=== PATIENT | female | born 1990 | race Caucasian/White ===

== ENCOUNTER 2024-01-25 12:38 | Emergency (ER) | payer OTHER, SELFPAY ==
[2024-01-25 12:44] VITALS: BP 125/80; PULSE 73; RESP 18; TEMP 36.6; O2SAT 95; BMI 44.9
--- NOTE | 2024-01-25 13:44 | ED_ITS ---
HPI - Female Genitourinary <Princess Cortes PA-C - Last Filed: 01/25/24 17:56> General Chief complaint: Urogenital-Female Stated complaint: possible bladder infection, pain Time Seen by Provider: 01/25/24 12:56 Source: patient Mode of arrival: Ambulatory History of Present Illness HPI Narrative: 33-year-old female here today for pelvic pain, pelvic pressure, and urinary symptoms for 2-3 days. She reports a long history of PCOS. She also reports she has been having increasingly painful menstrual periods and has been attempting to be evaluated for endometriosis for several years now. States that recently her last. She had a lot urgency to urinate and pressure with urination which resolved as soon as her period was over. LMP 2 weeks ago. States that in the last couple of days she has had the same sensation of a lot of pelvic/bladder pressure that makes her feel like she is urinate constantly and sometimes she does urinate and sometimes she does not. She has also had spotting when she wipes after urinating but no blood in her actual urine. She denies any burning sensation when she urinates. States that the pressure is constant and is not relieved by urinating. She denies constipation. She re ports that she has had many ovarian cysts in the past some which have ruptured. Her mother had a hysterectomy in her late 20s but patient is unsure why (she has not in contact with her mother). Patient was concerned that she has a UTI so she came in today. She is also frustrated that she has been unable to see a specialist to get an diagnosis of endometriosis or whatever else has been going on with her periods. She has not tried any contraceptives yet. Related Data Allergies Allergy/AdvReac Type Severity Reaction Status Date / Time clarithromycin Allergy mouth Verified 01/25/24 12:44 sloughed off Penicillins Allergy childhood, Verified 01/25/24 12:44 hallucinations hydrocodone AdvReac Diarrhea Verified 01/25/24 12:44 prednisone AdvReac Palpitation Verified 01/25/24 12:44 s Review of Systems <Princess Cortes PA-C - Last Filed: 01/25/24 17:56> Review of Systems ROS Unobtainable: All systems reviewed & are unremarkable except as noted in HPI and below Patient History <Princess Cotres PA-C - Last Filed: 01/25/24 17:56> Substance Use Type: does not use Exam <Princess Cortes PA-C - Last Filed: 01/25/24 17:56> Narrative Exam Narrative: GENERAL: Well-developed, well-nourished, appears stated age. In no acute distress. Obese. HEAD: Atraumatic. Normocephalic. EYES: Pupils equal round and reactive. Extraocular motions intact. No scleral icterus. No injection or drainage. ENT: Nose without bleeding, purulent drainage. Airway patent. NECK: Trachea midline. Non tender RESPIRATORY: Respiratory rate and effort normal ABD: Generalized tenderness throughout the lower and mid abdomen but no focal tenderness. Soft, no rebound or guarding. No obvious masses palpated. EXTREMITIES: No edema or joint tenderness. NEURO: AOx3. SKIN: No rash or erythema of visible areas Initial Vital Signs Initial Vital Signs: Vital Signs Temperature 98 F 01/25/24 12:44 Pulse Rate 73 01/25/24 12:44 Respiratory Rate 18 01/25/24 12:44 Blood Pressure 125/80 01/25/24 12:44 Pulse Oximetry 95 01/25/24 12:44 Oxygen Delivery Method Room Air 01/25/24 12:44 <Margaret Dill MD - Last Filed: 01/26/24 07:02> Initial Vital Signs Initial Vital Signs: Vital Signs Temperature 98 F 01/25/24 12:44 Pulse Rate 73 01/25/24 12:44 Respiratory Rate 18 01/25/24 12:44 Blood Pressure 125/80 01/25/24 12:44 Pulse Oximetry 95 01/25/24 12:44 Oxygen Delivery Method Room Air 01/25/24 12:44 Course <Princess Cortes PA-C - Last Filed: 01/25/24 17:56> Orders Ordered: Discontinued Medications Acetaminophen (Acetaminophen 325 Mg Tablet) 975 mg PO NOW ONE Stop: 01/25/24 14:31 Last Admin: 01/25/24 14:38 Dose: 975 mg Documented By: PREMA Ondansetron HCl (Ondansetron 4 Mg/2 Ml Inj) 4 mg IV NOW PRN PRN Reason: Nausea And Vomiting Ondansetron HCl (Ondansetron 4 Mg Odt) 4 mg SL NOW PRN PRN Reason: Nausea And Vomiting Vital Signs Vital signs: Vital Signs - 8 hr 03/23/24 12:44 Temperature 98 F Pulse Rate 73 Respiratory Rate 18 Blood Pressure 125/80 Pulse Oximetry 95 Oxygen Delivery Method Room Air <Margaret Dill MD - Last Filed: 01/26/24 07:02> Orders Ordered: Discontinued Medications Acetaminophen (Acetaminophen 325 Mg Tablet) 975 mg PO NOW ONE Stop: 01/25/24 14:31 Last Admin: 01/25/24 14:38 Dose: 975 mg Documented By: PREMA Ondansetron HCl (Ondansetron 4 Mg/2 Ml Inj) 4 mg IV NOW PRN PRN Reason: Nausea And Vomiting Ondansetron HCl (Ondansetron 4 Mg Odt) 4 mg SL NOW PRN PRN Reason: Nausea And Vomiting Vital Signs Vital signs: Vital Signs - 8 hr 01/25/24 12:44 Temperature 98 F Pulse Rate 73 Respiratory Rate 18 Blood Pressure 125/80 Pulse Oximetry 95 Oxygen Delivery Method Room Air [facility] - Female Genitourinary <Princess Cortes PA-C - Last Filed: 01/25/24 17:56> Lab Data Labs: Lab Results 01/25/24 Range/Units 13:37 Urine RBC 30-100/hpf H (0-5/HPF) Urine WBC >100/hpf H (0-5/HPF) Ur Squamous Epith Cells None seen (0-5/HPF) Urine Bacteria Few (2-10) H (None) Ur Culture Indicated? Specimen cultured Vol Urine Centrifuged 10ml (spun) Point of Care Testing Test Results Negative Urine Dip Bedside Urine Glucose Negative Bedside Urine Bilirubin - Negative Bedside Urine Ketone - Negative Urine Specific [place] 1.025 Bedside Urine Occult Blood - Negative Bedside Urine Protein +/- 15 Bedside Urine Urobilinogen 3+ 8mg Bedside Urine Nitrite - Negative Bedside Urine Leukocytes - Negative Esterase Imaging Data pelvic US: Radiologist's Impression: [address] [address] Ultrasound Report Signed Patient: Noemy Grace MR#: [id number] : 1990 Acct:[id number] Age/Sex: 33 / F Date of Service: 01/25/24 Loc: ED Accession Number: [id number] Procedure: US pelvic complete Ordering Provider: Princess Cortes P.A-C PROCEDURE: US PELVIC COMPLETE INDICATIONS: pelvic pain/pressure, abnl vag bleeding TECHNIQUE: Real-time scanning was performed of the pelvic organs, with image documentation. Additional endovaginal scanning was necessary due to incomplete visualization of the adnexal and endometrial structures by transabdominal scanning. COMPARISON: None. FINDINGS: Uterus: Uterus is anteverted and normal in size at 8.4 x 4 x 5 cm. The myometrium is homogeneous. The endometrium measures 10 mm combined thickness. Ovaries: The right ovary measures 3 x 3.4 x 2.7 cm, with a calculated ovarian volume of 14.7 cc. The left ovary measures 2.6 x 2.2 x 2.3 cm, with a calculated ovarian volume of 6.7 cc. Within the right adnexa there is a 2.1 simple cyst. There is additional 2.3 complex cyst with internal septations. Less than 12 follicles can be seen in each ovary. No adnexal masses are seen. Other: No pathologic free abdominal or pelvic fluid. IMPRESSION: Complex right ovarian cyst is likely involuting hemorrhagic cyst. Consider follow-up imaging in 12 weeks to ensure resolution. We strive to produce accurate, complete, and clear reports of imaging services. To assist us in improving patient care, this report was composed using standard report templates and voice recognition software. Therefore, it may contain abnormal punctuation, insertions and/or omissions. Occasional wrong-word or sound-alike substitutions may occur. Though we review the report and make efforts to correct it, we do r ecommend that the report be read carefully in proper context to recognize any text inaccuracies. Dictated by: Wisam Collins M.D. on 01/25/2024 at 14:46 Approved by: Wisam Collins M.D. on 01/25/2024 at 14:49 [facility] Narrative Medical decision making narrative: [] Multiple etiologies for patient's symptoms considered including, but not limited to: UTI, dysmenorrhea, PCOS, endometriosis, overactive bladder, interstitial cystitis Patient's initial urine dipstick showed no bacteria, urine then sent for microscopic urinalysis which showed RBCs and WBCs but only few bacteria. Urine sent for culture. Her symptoms and urine today are not completely consistent with a UTI so we will await culture results before treating. Pelvic ultrasound was also done today because patient reports a long history worsening painful periods, urinary symptoms during her menses, and currently some abnormal spotting occurring 2 weeks after her last menses. There was a complex 2-1/2 cm cyst, possibly hemorrhagic cyst, on her right ovary but otherwise no significant findings on the ultrasound. Patient's belly is soft and although she reports generalized tenderness she does not appear uncomfortable or have any guarding or rebound tenderness on the exam. Her vital signs are normal, nontoxic appearing , moving around easily. It is possible that patient has endometriosis or some other menses related diagnosis but she will need to see gynecology to be further evaluated for this. Referral placed as she has having a hard time getting referrals through primary care (they were stationed in [place] up until recently). Again her urine today does not confirm a UTI for certain so will await urine culture results and call patient with results. We discussed signs and symptoms of worsening condition and when to return to the ER. Patient's symptoms improved over duration of stay with above-stated therapies. Findings and discharge diagnosis discussed with patient/family followed by verbalization of understanding Return precautions discussed with patient/family whom verbalize understanding of diagnosis and plan <Margaret Dill MD - Last Filed: 01/26/24 07:02> Lab Data Labs: Lab Results 01/25/24 Range/Units 13:37 Urine RBC 30-100/hpf H (0-5/HPF) Urine WBC >100/hpf H (0-5/HPF) Ur Squamous Epith Cells None seen (0-5/HPF) Urine Bacteria Few (2-10) H (None) Ur Culture Indicated? Specimen cultured Vol Urine Centrifuged 10ml (spun) Point of Care Testing Test Results Negative Urine Dip Bedside Urine Glucose Negative Bedside Urine Bilirubin - Negative Bedside Urine Ketone - Negative Urine Specific [place] 1.025 Bedside Urine Occult Blood - Negative Bedside Urine Protein +/- 15 Bedside Urine Urobilinogen 3+ 8mg Bedside Urine Nitrite - Negative Bedside Urine Leukocytes - Negative Esterase Discharge Plan Departure Patient Disposition: Home Clinical Impression: Pelvic pain, Ovarian cyst Instructions: DI for Ovarian Cyst, DI for Pelvic Pain Activity Restrictions/Additional Instructions: Thank you for seeing us today. You were evaluated for pelvic pain and urinary symptoms but found to have no urinary tract infection at this time. However your urine did show red blood cells and white blood cells and a few bacteria so we are sending it for urine culture which will verify whether or not it is a urinary tract infection. We will call you with the results. Please take Tylenol and Motrin as needed for your pain and drink plenty of fluids. You also had a pelvic ultrasound that showed a complex right ovarian cyst. Due to your ongoing symptoms relating to your menstrual period and your urinary tract symptoms I have referred you to gynecology. Please call the attached phone numbers this week to schedule an appointment. If you have any new or worsening symptoms including sudden onset severe pain, fevers, vomiting, back pain, severe vaginal bleeding please return to the emergency department. Referrals: Randi Degroot MD [Physician] - 5-7 days (Chronic pelvic pain and urinary symptoms with menses; worsening. Irregular and painful menses. Known Dx of PCOS but would like w/u for endometriosis. ) Daxa Castellon MD [Non-Staff] - 5-7 days (Chronic pelvic pain and urinary symptoms with menses; worsening. Irregular and painful menses. Known Dx of PCOS but would like w/u for endometriosis. ) Provider,Shalini ZAMORA [Primary Care Provider] - Stand Alone Forms: Patient Portal/API ED Sign-out <Margaret Dill MD - Last Filed: 01/26/24 07:02> Cosign ED Attending Cosignature Attestation: I did not see this patient. I was available all times for consultation.
[2024-01-25 14:10] LABS: Bacteria Urine Few (2-10); Culture Indicated Urine Specimen Cultured; RBC Urine 30-100/HPF (0-5/HPF); Squamous Epithelial Cell Urine None Seen (0-5/HPF); Urine Volume 10mL (spun); WBC Urine >100/HPF (0-5/HPF)
--- NOTE | 2024-01-25 14:20 | PC.NURSE ---
provider at bedside
--- NOTE | 2024-01-25 14:30 | DI.US.S_ITS ---
PROCEDURE: US PELVIC COMPLETE INDICATIONS: pelvic pain/pressure, abnl vag bleeding TECHNIQUE: Real-time scanning was performed of the pelvic organs, with image documentation. Additional endovaginal scanning was necessary due to incomplete visualization of the adnexal and endometrial structures by transabdominal scanning. COMPARISON: None. FINDINGS: Uterus: Uterus is anteverted and normal in size at 8.4 x 4 x 5 cm. The myometrium is homogeneous. The endometrium measures 10 mm combined thickness. Ovaries: The right ovary measures 3 x 3.4 x 2.7 cm, with a calculated ovarian volume of 14.7 cc. The left ovary measures 2.6 x 2.2 x 2.3 cm, with a calculated ovarian volume of 6.7 cc. Within the right adnexa there is a 2.1 simple cyst. There is additional 2.3 complex cyst with internal septations. Less than 12 follicles can be seen in each ovary. No adnexal masses are seen. Other: No pathologic free abdominal or pelvic fluid. IMPRESSION: Complex right ovarian cyst is likely involuting hemorrhagic cyst. Consider follow-up imaging in 12 weeks to ensure resolution. We strive to produce accurate, complete, and clear reports of imaging services. To assist us in improving patient care, this report was composed using standard report templates and voice recognition software. Therefore, it may contain abnormal punctuation, insertions and/or omissions. Occasional wrong-word or sound-alike substitutions may occur. Though we review the report and make efforts to correct it, we do recommend that the report be read carefully in proper context to recognize any text inaccuracies. Dictated by: Wisam Collins M.D. on 01/25/2024 at 14:46 Approved by: Wisam Collins M.D. on 01/25/2024 at 14:49
[2024-01-25] MEDS: ACETAMINOPHEN 325 MG TABLET 975 MG PO (14:38)
[2024-01-25 16:30] VITALS: BP 121/74; PULSE 75; RESP 16; O2SAT 100
== END 2024-01-25 16:34 | disposition home or self-care (01) ==
PROVIDERS: Emergency Provider Physician Assistant
DX: R10.2 Pelvic and perineal pain (principal); N83.201 Unspecified ovarian cyst, right side
CPT/HCPCS: 76830; 76856; 81003; 81015; 81025; 87077; 87086; 93975; 99284

== ENCOUNTER 2024-03-02 19:51 | Emergency (ER) | payer OTHER, SELFPAY ==
[2024-03-02 20:11] VITALS: BP 133/63; PULSE 69; RESP 16; TEMP 36.5; O2SAT 100; BMI 45.5
--- NOTE | 2024-03-02 20:17 | DI.RAD.S_ITS ---
PROCEDURE: XR KNEE RT 3V INDICATIONS: GLF right knee injury TECHNIQUE: 3 views of the knee were acquired. COMPARISON: None. FINDINGS: Bones: No fractures or dislocations. No suspicious bony lesions. Soft tissues: Large joint effusion. No suspicious soft tissue calcifications. IMPRESSION: Large effusion. No visualized acute fracture or dislocation. However, if clinical concern and/or pain persist, short interval imaging followup in 7-10 days is recommended, as occult injury cannot be definitively excluded. Dictated by: Aura Schmidt M.D. on 03/02/2024 at 21:21 Approved by: Aura Schmidt M.D. on 03/02/2024 at 21:23
--- NOTE | 2024-03-02 22:24 | ED_ITS ---
HPI - Fall General Chief Complaint: Fall Stated Complaint: rt knee injury Time Seen by Provider: 03/02/24 22:14 Source: patient Mode of arrival: Ambulatory History of Present Illness HPI Narrative: 33-year-old female here for evaluation of right knee pain. Patient states that a couple days ago she fell while walking on some cement and landed on her knees. Sustained some abrasions to both of her knees and left elbow. She is here for evaluation of knee discomfort, redness around the outside of the knee. There has been no instability. Related Data Home Medications Medication Instructions Recorded Confirmed dextroamphetamine-amphetamine 30 30 mg PO DAILY 02/25/24 02/25/24 mg tablet (Adderall) Previous Rx's Medication Instructions Recorded norethindrone 1 mg-ethinyl 1 tab PO DAILY #84 tabs 02/25/24 estradiol 20 mcg (21)-iron 75 mg (7) tablet cephalexin 500 mg tablet 500 mg PO QID 7 days #28 tabs 03/02/24 Allergies Allergy/AdvReac Type Severity Reaction Status Date / Time clarithromycin Allergy mouth Verified 02/25/24 08:38 sloughed off Penicillins Allergy childhood, Verified 02/25/24 08:38 hallucinations hydrocodone AdvReac Diarrhea Verified 02/25/24 08:38 prednisone AdvReac Palpitation Verified 02/25/24 08:38 s Review of Systems Constitutional Constitutional: Reports system reviewed and no additional complaints, except as documented Musculoskeletal Musculoskeletal: Reports system reviewed and no additional complaints, except as documented Integumentary/Breasts Skin/Breast: Reports system reviewed and no additional complaints, except as documented Hematologic/Lymphatic On Anticoagulants: No Patient History Medical History Family history of breast cancer in first degree relative Obesity, Class III, BMI 40-49.9 (morbid obesity) Endometriosis Family History (Updated 02/25/24 @ 11:11 by Wendy Marshall DO) Mother Cancer Social History Smoking Status: Never smoker Smoking Status: Never smoker Substance Use Type: does not use Exam Initial Vital Signs Initial Vital Signs: Vital Signs Temperature 97.7 F 03/02/24 20:11 Pulse Rate 69 03/02/24 20:11 Respiratory Rate 16 03/02/24 20:11 Blood Pressure 133/63 03/02/24 20:11 Pulse Oximetry 100 03/02/24 20:11 Oxygen Delivery Method Room Air 03/02/24 20:11 [facility] Head: normal to inspection and normocephalic Skin Other: Abrasion over the anterior portion of the knee with some surrounding erythema and warmth. No drainage. No pustules. Extrem Other: Swelling to the right knee. Course Orders Ordered: ED Orders 03/02/24 20:17 XR knee RT 3V Stat Discontinued Medications Bacitracin (Bacitracin Oint 0.9 Gm Pckt) 1 applic TOP NOW ONE Stop: 03/02/24 22:26 Last Admin: 03/02/24 22:32 Dose: 1 applic Documented By: LUIS Cephalexin HCl (Cephalexin 250 Mg Capsule) 500 mg PO NOW ONE Stop: 03/02/24 22:26 Last Admin: 03/02/24 22:32 Dose: 500 mg Documented By: LUIS Vital Signs Vital signs: Vital Signs - 8 hr 03/02/24 20:11 Temperature 97.7 F Pulse Rate 69 Respiratory Rate 16 Blood Pressure 133/63 Pulse Oximetry 100 Oxygen Delivery Method Room Air MDM - Fall Imaging Data Extremity x-ray #1: Radiologist's Impression: PROCEDURE: XR KNEE RT 3V INDICATIONS: GLF right knee injury TECHNIQUE: 3 views of the knee were acquired. COMPARISON: None. FINDINGS: Bones: No fractures or dislocations. No suspicious bony lesions. Soft tissues: Large joint effusion. No suspicious soft tissue calcifications. IMPRESSION: Large effusion. No visualized acute fracture or dislocation. However, if clinical concern and/or pain persist, short interval imaging followup in 7-10 days is recommended, as occult injury cannot be definitively excluded. [facility] Narrative Medical decision making narrative: X-ray show no signs of a fracture. She does have an effusion of the right knee. Has an abrasion on the skin overlying the knee with some surrounding erythema and warmth. Is consistent with a cellulitis. Will start with antibiotics and was given a prescription in the 1st dose here in the ER. Low suspicion for septic joint. She can continue to take Tylenol and ibuprofen. Recommended elevation and ice. No indication for admission to the hospital. Discharge Plan Departure Patient Disposition: Home Clinical Impression: Effusion of right knee, Abrasion of knee, right, Cellulitis Instructions: DI for Cellulitis -- Adult Activity Restrictions/Additional Instructions: You can use ice over your knee. Tylenol and ibuprofen for any discomfort. You can shower like normal. Take the antibiotics as directed. Return to the emergency department for new symptoms. Prescriptions: New cephalexin 500 mg tablet 500 mg PO QID 7 Days Qty: 28 0RF No Action norethindrone-e.estradiol-iron 1 mg-20 mcg (21)/75 mg (7) tablet 1 tab PO DAILY Qty: 84 3RF Rx Instructions: Continuous, skipping placebo pills dextroamphetamine-amphetamine [Adderall] 30 mg tablet 30 mg PO DAILY Referrals: ProviderShalini [Primary Care Provider] - Stand Alone Forms: Patient Portal/API
[2024-03-02] MEDS: BACITRACIN OINT 0.9 GM PCKT 1 APPLIC TOP (22:32)
[2024-03-02] MEDS: cephALEXin 250 MG CAPSULE 500 MG PO (22:32)
== END 2024-03-02 22:41 | disposition home or self-care (01) ==
PROVIDERS: Emergency Provider Emergency Medicine
DX: S80.211A Abrasion, right knee, initial encounter (principal); L03.115 Cellulitis of right lower limb; M25.461 Effusion, right knee; W18.30XA Fall on same level, unspecified, initial encounter
CPT/HCPCS: 73562; 99283

== ENCOUNTER 2024-09-17 16:23 | Emergency (ER) | payer OTHER, SELFPAY ==
[2024-09-17 16:37] VITALS: BP 130/67; PULSE 84; RESP 16; TEMP 36.4; O2SAT 98; BMI 43.0
--- NOTE | 2024-09-17 17:31 | PC.NURSE ---
ganglion cyst on the top R foot. reports chronic. removed surgically in the past. reports surgery was complicated and the cyst was entangled in an artery and i almost lost my foot Advised by this RN that usually that is a surgical intervention and we most likely will not drain in ED especially if complicated. discussed expectations of care with pt and agreeable.
--- NOTE | 2024-09-17 17:49 | ED.LOWEXIN ---
HPI - Extremity Injury (Lower) <Liya Aly PA-C - Last Filed: 09/17/24 18:15> General Chief Complaint: Extremity Injury, Lower Stated Complaint: thinks cyst on top of rt foot Time Seen by Provider: 09/17/24 17:04 History of Present Illness HPI Narrative: Ms. Grace is a pleasant 34-year-old female who presents to the emergency department for a right foot ganglion cyst x2 weeks. Patient reports she has a history of ganglion cyst in the same area in her right foot that was surgically removed a few years ago. Reports that she had a complex surgical removal because the cyst was involved with a nerve and vasculature in the area. She had physical therapy following the surgery. States that the cyst occasionally returns and goes away on its own however it has returned and persisted for the last 2 weeks. States that this cyst is harder than it normally is. She came to the ER to see if she could possibly have it drained. She denies any fevers, chills, pain at rest, numbness, tingling. Wearing compressive shoes does cause pain. Related Data Home Medications Medication Instructions Recorded Confirmed dextroamphetamine-amphetamine 30 30 mg PO DAILY 02/25/24 09/07/24 mg tablet (Adderall) Previous Rx's Medication Instructions Recorded norethindrone 1 mg-ethinyl 1 tab PO DAILY #84 tabs 02/25/24 estradiol 20 mcg (21)-iron 75 mg (7) tablet Allergies Allergy/AdvReac Type Severity Reaction Status Date / Time clarithromycin Allergy mouth Verified 09/07/24 10:29 sloughed off Penicillins Allergy childhood, Verified 09/07/24 10:29 hallucinations hydrocodone AdvReac Diarrhea Verified 09/07/24 10:29 prednisone AdvReac Palpitation Verified 09/07/24 10:29 s Review of Systems <Liya Aly PA-C - Last Filed: 09/17/24 18:15> Review of Systems ROS Unobtainable: All systems reviewed & are unremarkable except as noted in HPI and below Patient History <Liya Aly PA-C - Last Filed: 09/17/24 18:15> Medical History Vaginal delivery Morphea (~2015) Sleep apnea Asthma (~2004) Migraines Headache ADHD Foot pain Carpal tunnel syndrome (~2011) Vertigo Painful menstrual periods Ovarian cyst GERD (gastroesophageal reflux disease) (~1988) Family history of breast cancer in first degree relative Obesity, Class III, BMI 40-49.9 (morbid obesity) Endometriosis Surgical History Anesthesia [place] teeth removed (~2014) History of removal of cyst (~2019) History of carpal tunnel release (~2013) Family History Mother Cancer Hypertension Mental health problem Father Diabetes mellitus Brother Mental health problem Brother Gout Grandfather Brain aneurysm Grandfather Pancreatic cancer Lung cancer Family/Other Hydronephrosis Social History Smoking Status: Never smoker Smoking Status: Never smoker Substance Use Type: does not use Exam <Liya Aly PA-C - Last Filed: 09/17/24 18:15> Narrative Exam Narrative: GENERAL: 34 year old patient appears stated age. Well-developed patient, in no acute distress. HEAD: Atraumatic. Normocephalic. EYES: Extraocular motions intact. No scleral icterus. No injection or drainage. ENT: Nose without bleeding, purulent drainage. NECK: Trachea midline. Cervical ROM intact. CARDIOVASCULAR: Regular rate. RESPIRATORY: ?Nonlabored respirations. ?Speaking in clear, full sentences. ? EXTREMITIES: Right foot with a proximally 1.5 cm firm, round cyst-like structure on the dorsal midfoot. No tenderness to palpation. Old healed surgical scar adjacent to the cyst. No erythema, fluctuance, increased warmth or skin changes. Strong DP and PT pulses. Brisk capillary refill and full range of motion of the foot and ankle. NEURO: AOx3. ?Clear speech. ?Moves all 4 extremities appropriately. SKIN: No rash or erythema of visible areas Initial Vital Signs Initial Vital Signs: Vital Signs Temperature 97.6 F 09/17/24 16:37 Pulse Rate 84 09/17/24 16:37 Respiratory Rate 16 09/17/24 16:37 Blood Pressure 130/67 09/17/24 16:37 Pulse Oximetry 98 09/17/24 16:37 Oxygen Delivery Method Room Air 09/17/24 16:37 <Margaret Dill MD - Last Filed: 09/18/24 00:55> Initial Vital Signs Initial Vital Signs: Vital Signs Temperature 97.6 F 09/17/24 16:37 Pulse Rate 84 09/17/24 16:37 Respiratory Rate 16 09/17/24 16:37 Blood Pressure 130/67 09/17/24 16:37 Pulse Oximetry 98 09/17/24 16:37 Oxygen Delivery Method Room Air 09/17/24 16:37 Course <Liya Aly PA-C - Last Filed: 09/17/24 18:15> Vital Signs Vital signs: Vital Signs - 8 hr 09/17/24 18:21 Pulse Rate 71 Respiratory Rate 14 Blood Pressure 114/64 Pulse Oximetry 98 Oxygen Delivery Method Room Air <Margaret Dill MD - Last Filed: 09/18/24 00:55> Vital Signs Vital signs: Vital Signs - 8 hr 09/17/24 18:21 Pulse Rate 71 Respiratory Rate 14 Blood Pressure 114/64 Pulse Oximetry 98 Oxygen Delivery Method Room Air MDM - Extremity Injury (Lower) <Liya Aly PA-C - Last Filed: 09/17/24 18:15> MDM Narrative Medical decision making narrative: 34-year-old female presents to the emergency department for a cyst on her dorsal right foot x2 weeks. Differential diagnosis includes but not limited to epidermoid cyst, ganglion cyst, abscess, bony growth, etc. on exam patient is in no acute distress, nontoxic-appearing, all vital signs within normal limits. She has a firm but mobile cyst like structure on her right dorsal midfoot. States that this is very similar to past ganglion cyst and is in the same location. She would like the cyst to be drained however I explained to her that there are no signs of neurovascular compression nor infection and after shared decision-making we agreed a motor coach driver intervention would be more appropriate. Patient verbalized understanding and is agreeable to follow up with her primary care doctor to get referral to Podiatry. We discussed ER return precautions. She is stable for discharge. Discharge Plan Departure Patient Disposition: Home Clinical Impression: Ganglion cyst of right foot Instructions: DI Ganglion Cyst Activity Restrictions/Additional Instructions: Please rest, use ibuprofen/Tylenol if needed for pain. Please follow up with your primary care doctor within the next 2-3 days for a referral to the motor coach driver. Return to the emergency department for any new or worsening symptoms, or any other concerns. Thank you for letting me participate in your care, Liya Aly PA-C Prescriptions: No Action norethindrone-e.estradiol-iron 1 mg-20 mcg (21)/75 mg (7) tablet 1 tab PO DAILY Qty: 84 3RF Rx Instructions: Continuous, skipping placebo pills dextroamphetamine-amphetamine [Adderall] 30 mg tablet 30 mg PO DAILY Referrals: Provider,Shalini ZAMORA [Primary Care Provider] - Stand Alone Forms: Patient Portal/API/Survey ED Sign-out <Margaret Dill MD - Last Filed: 09/18/24 00:55> Cosign ED Attending Ambarature Attestation: I did not see this patient. I was available all times for consultation.
[2024-09-17 18:21] VITALS: BP 114/64; PULSE 71; RESP 14; O2SAT 98
== END 2024-09-17 18:22 | disposition home or self-care (01) ==
PROVIDERS: Emergency Provider Physician Assistant
DX: M67.471 Ganglion, right ankle and foot (principal)
CPT/HCPCS: 99281; 99282

== ENCOUNTER 2024-11-19 08:17 | Day surgery (SDC) | payer OTHER, SELFPAY ==
[2024-11-13 15:03] VITALS: BMI 42.6
[2024-11-19] VITALS (13 sets, daily range): BP systolic 93–126; BP diastolic 50–82; PULSE 56–106; RESP 14–22; TEMP 36.1–36.8; O2SAT 96–100; BMI 42.6
--- NOTE | 2024-11-19 | PATH_ITS ---
[facility] Accession Number: [id number] No. of containers..01 Tissue . 01 Material submitted: . uterus - CERVIX, UTERUS, BILATERAL FALLOPIAN TUBES, LEFT OVARY . 01 Diagnosis: CERVIX, UTERUS, BILATERAL FALLOPIAN TUBES, LEFT OVARY, LAPAROSCOPIC TOTAL HYSTERCTOMY, BILATERAL SALPINGECTOMY, AND LEFT OOPHORECTOMY (WEIGHT 85 GRAMS): Cervix with no significant histomorphologic abnormality. Endocervix with no significant histomorphologic abnormality. Weakly proliferative endometrium; negative for endometrioid intraepithelial neoplasia or malignancy. Myometrium with no significant histomorphologic abnormality. Uterine serosa with no significant histomorphologic abnormality. Left ovary with multiple cystic follicles and patchy stromal thecosis; negative for neoplasia. Left fallopian tube with a benign paratubal cyst (4 mm), complete cross-sections; negative for significant atypia. Right fallopian tube, complete cross-sections; negative for significant atypia. [facility] 11/24/2024 1004 Local . 01 Electronically signed: . Sheyla Mills MD, Pathologist NPI- [id number] . 01 Gross description: . Received in formalin with two patient identifiers and cervix, uterus, bilateral fallopian tubes, and left ovary, and consists of a uterus with attached cervix and bilateral tubes and attached cystic left ovary. The uterus measures 8.1 x 4.1 x 2.8 cm (85 grams) and is surfaced by a smooth, white, glistening serosa. The right parametrium is inked red and the left parametrium is inked yellow. There is a 3.1 x 2.8 x 0.5 cm attached cervix that has a smooth white glistening ectocervix and a 1.4 cm slit-like patent os. The endocervical canal is benavidez, trabeculated, and free of exophytic lesions. The myometrium is red-benavidez, smooth, glistening, measures up to 1.2 cm in thickness, and is otherwise unremarkable. There is a 4.1 x 1.5 cm, triangular, blood-tinged, finely granular endometrial lining with an average thickness of 0.2 cm. No masses or polyps are appreciated. There is a 3.2 x 2.4 x 1.7 cm attached enlarged left ovary. The serosal surface is benavidez-white, lobulated, smooth glistening, and is inked blue. The ovary is serially sectioned to show multiloculated smooth-walled, serous fluid-filled cysts with loculations ranging from 0.5 cm up to 1.1 cm in greatest dimension. In addition, there is a 1 cm in greatest dimension benavidez-orange corpus luteum and a 1.5 x 1.5 x 1.1 cm firm-white peripheral area of residual ovarian parenchyma. No excrescences are appreciated. The attached fimbriated fallopian tube measures 4.5 cm in length and has a smooth white glistening external surface. Sectioning shows a 0.3 cm stellate lumen and a 0.4 cm in greatest dimension simple serous fluid-filled paratubal cyst. The right fimbriated fallopian tube measures 4.8 cm in length by 0.5 cm in diameter ,and is surfaced by a benavidez glistening external surface. Sectioning shows a 0.3 cm unremarkable stellate lumen. Plant Mechanic sections are submitted as follows: . A1: Posterior cervix. A2: Anterior cervix. A3: Full thickness endomyometrium, posterior. A4: Full thickness endomyometrium, anterior. A5-A7: Enlarged cystic left ovary. A8: Left fallopian tube to include paratubal cysts and entirely fimbriated end. A9: Right fallopian tube to include entire fimbriated end. ([id number]) /MRV 11/20/2024 [facility]9 Local . 01 Pathologist provided ICD-10: R10.2, N83.209, N94.6 . 01 CPT . 233325 Specimen Comment: A courtesy copy of this report has been sent to [facility] Pathology Performed at: [address] [place], [place], [place] [id number] MD Humberto Marie MD Phone: [phone]
[2024-11-19] MEDS: LACTATED RINGERS 1,000 ML 42 ML IV ×2 (08:54→11:18)
--- NOTE | 2024-11-19 09:33 | PM.PREOP ---
Pre-operative Note Interval Note History & Physical reviewed/Exam performed by Physician: Yes Changes to H&P: No H&P completed within 30 days and has changed as indicated here:: see H&P from 11/03/24
[2024-11-19] MEDS: CEFAZOLIN VIAL 1 GM in SODIUM CHLORIDE 0.9% 100 ML IV (09:52)
[2024-11-19] MEDS: CEFAZOLIN 2 GM/100 ML PREMIX 100 ML IV (09:52)
--- NOTE | 2024-11-19 10:45 | SUR.OPER ---
Lithotomy on padded OR bed. [place] Pad Positioner under torso. Head on pillow, arms padded and tucked at sides. Legs secured in padded yellow fins stirrups.
[2024-11-19] MEDS: BUPIVACAINE 0.25% W/ EPI (PF) 10 ML VIAL 20 ML INJ (11:09)
--- NOTE | 2024-11-19 12:27 | PM.OP.1 ---
Operative Date/Time/Diagnoses Date of procedure: 11/19/24 Time of procedure: 10:00 Pre-op diagnosis: 1. Dysmenorrhea 2. Recurrent ovarian cysts 3. Pelvic pain Post-op diagnosis: same Procedure & Clinicians Procedure: Total laparoscopic hysterectomy Bilateral salpingectomy Left oophorectomy Cystoscopy Same procedure as scheduled: Yes Indications: 34yo with chronic dysmenorrhea, recurrent ovarian cysts, and pelvic pain, which have all been suboptimally treated with medical therapy, now desiring definitive management. Thus she was counseled and consented for the above procedures. Surgeon: Wendy Marshall Guitar Repairer: Hermann Sharif Anesthesia Type: General Operative Notes Findings: Normal appearing uterus, bilateral fallopian tubes, and bilateral ovaries. Normal appearing liver edge. No evidence of endometriosis noted on examination of the abdomen and pelvis. Closure Type: primary Specimen(s): other (uterus, cervix, bilateral fallopian tubes, left ovary) Applied: catheter Estimated Blood Loss (mL): 75 Blood products transfused: none Procedure in detail: The risks, benefits, indications and alternatives of the procedure were reviewed with the patient and informed consent was obtained. The pt was taken to the operating room where general anesthesia was obtained without difficulty. The pt was then placed in the low lithotomy position using [place] Stirrups and arms were tucked with padding. Sequential compression devices were placed bilaterally for VTE prophylaxis. She was then prepped and draped in the sterile fashion and a Dodd catheter was placed. She received 3g Ancef for surgical prophylaxis. A V-care uterine manipulator was placed through the cervix into the uterus for uterine manipulation. Attention was then turned to the patient?s abdomen were a 5mm skin incision was made in the inferior aspect of the umbilicus after injecting 0.25% Marcaine. A 5mm trocar and sleeve were then carefully introduced into the peritoneal cavity under direct visualization at a 90-degree angle while tenting up the abdominal wall. Intra-peritoneal placement was confirmed under direct visualization with the laparoscope with entry pressure <5 mmHg. A pneumoperitoneum was obtained with several liters of CO2 gas, maximum pressure of 15 mmHg. Upon entry into the peritoneal cavity, structures immediately below the incision were inspected and found to be free of injury. A survey of the patient's abdomen and pelvis was notable for the above findings. Three additional 5mm port sites, one in the right lateral side and two in the left lateral side, were placed under direct laparoscopic guidance. The Powerseal device was then used to clamp, cut, and ligate the left infundibulopelvic ligament. The left fallopian tube and ovary were from the lateral broad ligament attachments. The utero-ovarian and round ligaments were then clamped, cut, and ligated. The anterior broad ligament was then incised along the bladder reflection and the bladder was dissected off the lower uterine segment until endopelvic fascia was visualized. The uterine artery was then identified, skeletonized, and ligated on the left. The uterosacral ligament and cardinal ligament were transected on the left. Attention was then directed to the right side, where the right fallopian tube was from the mesosalpinx and the right ovary was left intact. Then the same procedure was done to clamp, cut, and ligate the right side of the uterus. The anterior colpotomy was then made using the Bovie L-hook and continued circumferentially inferior to the cervix using the colpotomy ring as a guide. The entire cervix and uterus was then successfully amputated and delivered through the vagina. Active bleeding was noted on the left and right corners of the colpotomy, which was ligated with the Powerseal. The 0 Stratafix suture was then introduced into the abdominal cavity via the vagina. The vaginal cuff was then closed laparoscopically with the barbed suture in a running fashion. The suture needle was removed via the lateral port under direct visualization. The pelvis was then irrigated and suctioned, and no active bleeding was appreciated. PerClot hemostatic powder was then applied to the vaginal cuff. The pneumoperitoneum was then released. The dodd catheter was then removed, and the cystoscope was then primed and advanced through the urethra and into the bladder. Both ureteral orifices were identified and bilateral efflux of urine was visualized. A survey of the bladder did not show defects or visible suture. The cystoscope was then removed and the bladder was drained, and the dodd catheter was replaced. The remaining ports were then removed. The skin incisions were reapproximated using 4-0 monocryl suture in a subcuticular fashion and covered with Dermabond. At the completion of the case the sponge and needle counts were correct x 2, and all instruments were confirmed to be removed from the vagina. The patient was taken to the PACU in stable condition. Complications: none Post-operative Condition: stable Disposition: PACU Plan for aftercare: Plan for overnight stay with discharge less than 24hrs postop.
[2024-11-19] MEDS: fentaNYL 100 MCG/2 ML INJ IV (12:41)
[2024-11-19] MEDS: hydrOXYzine 50 MG/ML INJ IM (12:52)
[2024-11-19] MEDS: KETOROLAC 30 MG/ML VIAL IV ×2 (12:57→19:26)
[2024-11-19] MEDS: OXYCODONE IR 5 MG TABLET PO (13:08)
--- NOTE | 2024-11-19 13:50 | PC.NURSE ---
1320, Patient delivered from PACU in stable condition, vital signs WNL, no bleeding from vagina, incision sites not bleeding, patient easily arousable, wants to sleep. Continuous O2 saturation monitor applied with alarm set.
[2024-11-19] MEDS: ACETAMINOPHEN 325 MG TABLET 650 MG PO ×2 (17:27→23:55)
--- NOTE | 2024-11-19 17:30 | PC.NURSE ---
1715 - Patient up to ambulate in room, catheter remains in place. Patient able to get up with minimal assistance and back to bed by herself. Bedding changed, small amount of blood on chux pad. Complains of moderate pain, declined oxycodone. Family in room, patient seated up in bed to eat dinner. Denies any other needs at this time.
--- NOTE | 2024-11-19 20:11 | PC.NURSE ---
IV flushed well, no redness or any signs of infiltration
[2024-11-19] MEDS: DOCUSATE 100 MG CAPSULE 200 MG PO (21:11)
[2024-11-19] MEDS: OXYCODONE IR 5 MG TABLET 10 MG PO (21:15)
[2024-11-20] MEDS: KETOROLAC 30 MG/ML VIAL IV ×2 (01:44→07:34)
[2024-11-20] MEDS: OXYCODONE IR 5 MG TABLET PO ×2 (01:52→06:06)
[2024-11-20 01:56] VITALS: BP 107/53; PULSE 60; RESP 17; TEMP 36.6; O2SAT 96
[2024-11-20] MEDS: ACETAMINOPHEN 325 MG TABLET 650 MG PO (06:02)
[2024-11-20 06:21] VITALS: BP 99/64; PULSE 72; RESP 18; TEMP 36.6
--- NOTE | 2024-11-20 07:12 | PC.NURSE ---
verbal report given to MARIANELA Álvarez
--- NOTE | 2024-11-20 08:02 | PM.DS.IH.1 ---
History of Present Illness History of Present Illness Date Patient Seen: 11/20/24 Time Patient Seen: 07:45 Chief complaint: Laparoscopic Total Hysterectomy Discharge Providers Provider Discharge Date: 11/20/24 Primary care physician: Shalini ZAMORA Provider Discharge provider: Wendy Marshall DO Summary Hospital Course Discharge Diagnosis: Total laparoscopic hysterectomy Bilateral salpingectomy Left oophorectomy Cystoscopy Hospital Course: 34yo F admitted on day of surgery and underwent an uncomplicated TLH/BS/LO. Her procedure was uncomplicated, with EBL <100cc. Overnight, she reports pain was well controlled, tolerating regular diet, voiding spontaneously, with minimal vaginal bleeding. Thus she was discharged to home on postoperative day #1. Status at Discharge Cognitive/behavioral status at discharge: oriented Functional status at discharge: independent ambulation Overall status at discharge: patient is progressing back to baseline Time Spent with Patient Time spent: Less than 30 minutes Exam Vital Signs (past 8 hours): - 11/20/24 01:56 11/20/24 06:21 Temperature 97.9 F 97.9 F Pulse Rate 60 72 Respiratory Rate 17 18 Blood Pressure 107/53 L 99/64 Pulse Oximetry 96 Oxygen Delivery Method Room Air Const General: comfortable and No acute distress Resp Effort & Inspection: normal respiratory effort and able to speak in complete sentences GI Other: soft, appropriately tender, mildly distended Skin Other: 4 laparoscopic incisions clean/dry/intact with dermabond in place Neuro Cognition: normal cognition Speech: speech normal Extrem General: normal to inspection and no calf tenderness Psych Mood: congruent mood Affect: normal affect [facility] Medical History Vaginal delivery Morphea (~2015) Sleep apnea Asthma (~2004) Migraines Headache ADHD Foot pain Carpal tunnel syndrome (~2011) Vertigo Painful menstrual periods Ovarian cyst GERD (gastroesophageal reflux disease) (~1988) Family history of breast cancer in first degree relative Obesity, Class III, BMI 40-49.9 (morbid obesity) Endometriosis Surgical History Anesthesia [place] teeth removed (~2014) History of removal of cyst (~2019) History of carpal tunnel release (~2013) Family History Mother Cancer Hypertension Mental health problem Father Diabetes mellitus Brother Mental health problem Brother Gout Grandfather Brain aneurysm Grandfather Pancreatic cancer Lung cancer Family/Other Hydronephrosis Social History household members: spouse Smoking Status: Never smoker alcohol intake: never Discharge Plan Discharge Plan Patient Disposition: Home Provider Discharge Comment: Take ibuprofen 600mg every 6hrs and/or acetaminophen 650mg every 6hrs as needed for pain. Use oxycodone 5mg every 4hrs as needed for severe pain. You should expect light vaginal bleeding over the next few days. Please call and let us know if you have heavy vaginal bleeding requiring a pad. Avoid lifting greater than 20lbs for at least 4wks. Avoid placing anything in the vagina for at least 6 weeks to ensure the vaginal cuff heals appropriately. Discharge orders & Medications Discharge Orders: Discharge (Order); Ordered 11/20/24 Ordered By: Wendy Marshall Prescriptions: Continued dextroamphetamine-amphetamine [Adderall] 30 mg tablet 30 mg PO DAILY Wegovy 1.7 mg/0.75 mL pen injector SUBCUT Patient Comments: [NO ORIGINAL SIG] ibuprofen 800 mg tablet 800 mg PO Q8H Qty: 60 0RF acetaminophen 325 mg capsule 650 mg PO Q6H Qty: 60 0RF docusate sodium [Colace] 100 mg capsule 100 mg PO BID Qty: 60 0RF oxycodone 5 mg capsule 5 mg PO Q6H PRN (Reason: pain (scale score 7-10)) Qty: 10 0RF Discontinued norethindrone-e.estradiol-iron 1 mg-20 mcg (21)/75 mg (7) tablet 1 tab PO DAILY Qty: 84 3RF Rx Instructions: Continuous, skipping placebo pills Follow up/Referrals: Wendy Marshall DO [Physician] - Diet/Activity/Treatments Diet: Diet as Tolerated Activity: Walking as tolerated. Skin/Wound/Dressing Care Skin care: You may shower normally. The dermabond will peel off in about 1 week. Report to your healthcare provider any signs of infection, such as:: chills, fever, increased pain, unusual drainage and unusual redness Visit Report/Discharge Packet Instructions: DI for Hysterectomy, DI for Laparoscopy, DI for Prescription Opioid Use Stand Alone Forms: Patient Portal/API Discharge Data Primary Care Provider: Provider,[place] NOAH Attending Provider: Wendy Marshall PROFGURWINDER Charge Codes Discharge inpatient/observation: [id number]
== END 2024-11-20 10:07 | disposition home or self-care (01) ==
LOC: OR 08:17 → AC 08:17 → LABOR 10:48
PROVIDERS: Referring Provider Student in an Organized Health Care Education/Training Program; Visit Provider Student in an Organized Health Care Education/Training Program
PROC: 0UT94ZZ Resection of Uterus, Percutaneous Endoscopic Approach (ICD-10-PCS; CPT 58571; principal; 2024-11-19 09:45)
DX: N83.8 Other noninflammatory disorders of ovary, fallopian tube and broad ligament (principal); N83.209 Unspecified ovarian cyst, unspecified side; N94.6 Dysmenorrhea, unspecified; R10.2 Pelvic and perineal pain; G47.33 Obstructive sleep apnea (adult) (pediatric); K21.9 Gastro-esophageal reflux disease without esophagitis; E66.01 Morbid (severe) obesity due to excess calories; Z68.41 Body mass index [BMI] 40.0-44.9, adult
CPT/HCPCS: 58571; J0690; J1100; J1171; J1885; J2250; J2405; J2704; J3010; J3410

== ENCOUNTER 2025-04-16 20:19 | Emergency (ER) | payer OTHER, SELFPAY ==
[2025-04-16 20:27] VITALS: BP 120/72; PULSE 63; RESP 16; TEMP 36.4; O2SAT 100; BMI 41.9
--- NOTE | 2025-04-16 21:36 | DI.RAD.S_ITS ---
PROCEDURE: XR SHOULDER RT MIN 2V INDICATIONS: pain, non traumatic TECHNIQUE: 3 views of the shoulder were acquired. COMPARISON: None. FINDINGS: Bones: No fractures or dislocations. No suspicious bony lesions. Visualized ribs appear intact. Soft tissues: No suspicious soft tissue calcifications. IMPRESSION: No significant osseous abnormality. Dictated by: Chance Skaggs M.D. on 04/16/2025 at 23:26 Approved by: Chance Skaggs M.D. on 04/16/2025 at 23:28
--- NOTE | 2025-04-16 21:46 | EKG_ITS ---
[facility] [address] [place] [id number] Test Date: 2025-04-16 Pat Name: Noemy Grace Department: [facility] Room: Gender: Female Electrical And Instrument Technician: MIS : [id number] Requested By: Order Number: [id number] Reading MD: Kiko Mane MD Measurements Intervals [place] Rate: 57 P: 33 ID: [id number] QRS: 44 QRSD: 94 T: 30 QT: 414 QTc: 402 Interpretive Statements Sinus bradycardia Electronically Signed On 04-19-2025 11:52:14 PDT by Kiko Mane MD
--- NOTE | 2025-04-16 21:54 | ED.EXTPRO ---
HPI - Extremity Problem General Chief complaint: Extremity Problem,Nontraumatic Stated complaint: RT shoulder pain, hand tingling Time Seen by Provider: 04/16/25 21:57 Source: patient Mode of arrival: Family Vehicle History of Present Illness HPI Narrative: 34-year-old female history of asthma, migraines, presents to the emergency department from home for evaluation of right shoulder pain, nontraumatic in nature, states that this has been happening over the past few months, she states that recently she has been feeling/hearing a popping sensation with movement of her arm/neck but denies any numbness weakness to the upper extremity denies any trauma, she states that she has been feeling some tingling sensation to her right arm but denies any chest pain shortness of breath visual disturbances. Not on any blood thinners Related Data Home Medications ?Medication ?Instructions ?Recorded ?Confirmed dextroamphetamine-amphetamine 30 30 mg PO DAILY 02/25/24 11/19/24 mg tablet (Adderall) semaglutide (weight loss) 1.7 mg SUBCUT 11/03/24 11/03/24 mg/0.75 mL subcutaneous pen injector (Wegovy) Previous Rx's ?Medication ?Instructions ?Recorded acetaminophen 325 mg capsule 650 mg (2 x 325 mg) PO Q6H #60 caps 11/03/24 docusate sodium 100 mg capsule 100 mg PO BID #60 caps 11/03/24 (Colace) ibuprofen 800 mg tablet 800 mg PO Q8H #60 tabs 11/03/24 oxycodone 5 mg capsule 5 mg PO Q6H PRN pain (scale score 11/03/24 7-10) #10 caps cyclobenzaprine 10 mg tablet 10 mg PO BEDTIME PRN muscle spasm 04/16/25 1 week #7 tabs naproxen 500 mg tablet (Naprosyn) 500 mg PO BID PRN pain 1 week #14 04/16/25 tabs Allergies Allergy/AdvReac Type Severity Reaction Status Date / Time clarithromycin Allergy mouth Verified 11/19/24 10:00 sloughed off Penicillins Allergy childhood, Verified 11/19/24 10:00 hallucinations hydrocodone AdvReac Diarrhea Verified 11/19/24 10:00 prednisone AdvReac Palpitation Verified 11/19/24 10:00 s Review of Systems Review of Systems Narrative: General: Denies fever, chills, weight loss HEENT: Denies headache, eye drainage, eye irritation, head trauma, sore throat, voice change Cardiovascular: Denies any chest pain, palpitations, tachycardia Respiratory: Denies any shortness of breath, cough, wheeze, stridor GI/: Denies any abdominal pain, nausea, vomiting, diarrhea, bright red blood per rectum, melanotic stools, urinary frequency, urinary retention, dysuria, hematuria MSK: Positive right shoulder/arm pain Skin: Denies any rashes, lesions, discoloration Neuro: Denies any headache, lightheadedness, dizziness, fainting, weakness Psych: Denies SI/HI Patient History Medical History (Updated 04/16/25 @ 22:14 by Aden Villarreal DO) Vaginal delivery Morphea (~2015) Sleep apnea Asthma (~2004) Migraines Headache ADHD Foot pain Carpal tunnel syndrome (~2011) Vertigo Painful menstrual periods Ovarian cyst GERD (gastroesophageal reflux disease) (~1988) Family history of breast cancer in first degree relative Obesity, Class III, BMI 40-49.9 (morbid obesity) Surgical History (Updated 01/01/25 @ 13:53 by Wendy Marshall DO) S/P laparoscopic hysterectomy (~11/2024) Anesthesia [place] teeth removed (~2014) History of removal of cyst (~2019) History of carpal tunnel release (~2013) Family History Mother Cancer Hypertension Mental health problem Father Diabetes mellitus Brother Mental health problem Brother Gout Grandfather Brain aneurysm Grandfather Pancreatic cancer Lung cancer Family/Other Hydronephrosis Social History household members: spouse alcohol intake: never Exam Narrative Exam Narrative: General: Cooperative, well-developed, not in acute distress HEENT: Normocephalic, atraumatic, PERRLA, normal sclera, eyelids normal Neck: Active full range of motion, atraumatic Chest: Normal to inspection, negative crepitus, no overlying erythema ecchymosis Respiratory: Normal respiratory effort, not in acute respiratory distress, clear to auscultation bilaterally negative cough, wheeze, tachypnea, rhonchi, rales Cardiology: Regular rate rhythm negative gallop, murmur, rubs GI/: No tenderness to palpation, soft, non rigid, normal to inspection, exam deferred MSK: Full active range of motion in all 4 extremities, atraumatic, no tenderness to palpation of any bony prominences Skin: No rashes or lesions noted Neuro: Alert awake oriented x3, moves all 4 extremities spontaneously, cranial nerves intact, able to answer all questions appropriately follows commands appropriately Psych: Cooperative, negative suicidal or homicidal ideations Initial Vital Signs Initial Vital Signs: Vital Signs Temperature 97.6 F 04/16/25 20:27 Pulse Rate 63 04/16/25 20:27 Respiratory Rate 16 04/16/25 20:27 Blood Pressure 120/72 04/16/25 20:27 Pulse Oximetry 100 04/16/25 20:27 Oxygen Delivery Method Room Air 04/16/25 20:27 Course Orders Ordered: ED Orders 04/16/25 21:36 XR shoulder RT 2+ views Stat EKG-12 Lead Stat Vital Signs Vital signs: Vital Signs - 8 hr 04/16/25 20:27 04/16/25 23:41 Temperature 97.6 F Pulse Rate 63 64 Respiratory Rate 16 17 Blood Pressure 120/72 120/62 Pulse Oximetry 100 98 Oxygen Delivery Method Room Air Room Air MDM - Extremity (Nontraumatic) Differential Diagnosis Differential diagnosis: Likely other (STEMI, fracture, cervical radiculopathy,) Imaging Data Extremity x-ray #1: Radiologist's Impression: [place] [address] XRay Report Signed Patient: Noemy Grace MR#: [id number] : 1990 Acct:[id number] Age/Sex: 34 / F Date of Service: 04/16/25 Loc: ED Accession Number: [id number] Procedure: XR shoulder RT 2+ views Ordering Provider: Aden Villarreal D.O. PROCEDURE: XR SHOULDER RT MIN 2V INDICATIONS: pain, non traumatic TECHNIQUE: 3 views of the shoulder were acquired. COMPARISON: None. FINDINGS: Bones: No fractures or dislocations. No suspicious bony lesions. Visualized ribs appear intact. Soft tissues: No suspicious soft tissue calcifications. IMPRESSION: No significant osseous abnormality. ECG Data Interpretation: EKG interpreted ED physician sinus bradycardia 57 beats per minute, QTC 402, normal axis no STEMI Critical Care Time Critical Care Time Attestation: 34-year-old female without any significant past medical history presenting for nontraumatic right shoulder pain ongoing intermittent for the past several months, she states that she is left-handed, she states that she feels ?popping sensations whenever she moves her arm excessively, states that she feels like it is increasing over the past few days, but denies any trauma. She states that when this happens she gets tingling sensations to her right arm/for a few seconds but completely resolved, she states that she feels like she is having more difficulty with the arm secondary to pain on exam she is neurovascularly intact she has full active passive and active range of motion of her shoulder however slowed secondary to pain. She will be treated symptomatically and placed in a sling and instructed to follow up with primary care and orthopedic surgery in outpatient setting. EKG nonischemic in nature, x-ray without any acute bony abnormalities. Patient was given strict return precautions she verbalized understanding of this and agrees to being discharged home with outpatient follow up Discharge Plan Departure Patient Disposition: Home Clinical Impression: Acute pain of right shoulder Instructions: How to Use a Sling Activity Restrictions/Additional Instructions: Please follow up with Orthopedic surgery and PCP in outpatient setting Please read the discharge instructions sheet carefully and bring all papers to all doctor follow-up visits, as it may contain information that your doctor may want to see. Disease processes change and evolve, if your symptoms worsen or if you develop any new symptoms that are concerning to you please return for evaluation. Your evaluation today does not show any evidence of any life-threatening/serious illnesses requiring admission to the hospital or surgery. Please follow-up with your doctor for re-evaluation in approximately 1 day. Seek immediate medical attention for any worrisome symptoms. *If you do not have a primary care provider please contact the [facility] Resource line at [phone]. They will ask some questions about your medical history and help get you set up with a doctor in the community. Prescriptions: New naproxen [Naprosyn] 500 mg tablet 500 mg PO BID PRN (Reason: pain) 7 Days Qty: 14 0RF cyclobenzaprine 10 mg tablet 10 mg PO BEDTIME PRN (Reason: muscle spasm) 7 Days Qty: 7 0RF No Action dextroamphetamine-amphetamine [Adderall] 30 mg tablet 30 mg PO DAILY Wegovy 1.7 mg/0.75 mL pen injector SUBCUT Patient Comments: [NO ORIGINAL SIG] ibuprofen 800 mg tablet 800 mg PO Q8H Qty: 60 0RF acetaminophen 325 mg capsule 650 mg PO Q6H Qty: 60 0RF docusate sodium [Colace] 100 mg capsule 100 mg PO BID Qty: 60 0RF oxycodone 5 mg capsule 5 mg PO Q6H PRN (Reason: pain (scale score 7-10)) Qty: 10 0RF Referrals: Provider,Shalini ZAMORA [Primary Care Provider, Family Practice] Marcell Howard MD [Physician, Orthopedic Surgery] Stand Alone Forms: Patient Portal/API
[2025-04-16 23:41] VITALS: BP 120/62; PULSE 64; RESP 17; O2SAT 98
== END 2025-04-16 23:52 | disposition home or self-care (01) ==
PROVIDERS: Emergency Provider Student in an Organized Health Care Education/Training Program
DX: M25.511 Pain in right shoulder (principal); R00.1 Bradycardia, unspecified
CPT/HCPCS: 73030; 93005; 99283; 99284